=== PATIENT | male | born 1990 | race Caucasian/White ===

== ENCOUNTER 2019-09-03 01:19 | Emergency (ER) | payer SELFPAY ==
--- NOTE | 2019-09-03 07:05 | ER Document Report ---
ED Respiratory Problem - General Chief Complaint: Shortness Of Breath Stated Complaint: SHORTNESS OF BREATH/LIMBS NUMB Time Seen by Provider: 09/03/19 06:15 Primary Care Provider: ERIC LOVELL MD [Primary Care Provider] - Follow up as needed Notes: 28-year-old male reports worsening shortness of Breath, states it's been going on for about a year but tonight unable to lay flat. Reports intermittent "flare ups" of breathing problems. Pt reports he travels for [employer] all over the and recently traveled from [place] 3 days ago. States he has "flare ups" while driving sometimes and with activity. Reports being a current smoker. Pt denies chest pain, denies pain with deep breaths, denies N/V/D. Pt reports having mild weakness in upper and lower extremities at times. NAD noted at this time. Denies fever chills denies any coronavirus exposures. She does feel numb and tingling all over with some of these episodes. Including his hands and feet. Has been told he has had anxiety in the past. Does not have anything for it.. TRAVEL OUTSIDE OF THE [place] IN LAST 30 DAYS: No - Related Data Allergies/Adverse Reactions: No Known Allergies Allergy (Unverified 10/11/14 10:15) Past Medical History - Social History Smoking Status: Current Every Day Smoker Chew tobacco use (# tins/day): No Frequency of alcohol use: Occasional Drug Abuse: None Family History: Reviewed & Not Pertinent - Past Medical History Cardiac Medical History: Denies: Hx Coronary Artery Disease, Hx Heart Attack, Hx Hypertension Pulmonary Medical History: Denies: Hx Asthma, Hx Bronchitis, Hx COPD, Hx Pneumonia Neurological Medical History: Denies: Hx Cerebrovascular Accident, Hx Seizures Musculoskeletal Medical History: Denies Hx Arthritis Past Surgical History: Reports: Hx Orthopedic Surgery - Immunizations Hx Diphtheria, Pertussis, Tetanus Vaccination: Yes - unk - Review of Systems - Review of Systems Constitutional: denies: Chills, Fever EENT: No symptoms reported Cardiovascular: Palpitations, Heart racing, Dyspnea. denies: Chest pain Respiratory: denies: Cough, Hurts to breathe, Short of breath Neurological/Psychological: Anxiety, Tingling. denies: Seizure, Headaches -: Yes All other systems reviewed and negative Physical Exam - Vital signs Vitals: Temp 98.6 F 09/03/19 02:00 - Notes Notes: GENERAL_APPEARANCE: well_nourished, alert, cooperative, no_acute_distress, no_obvious_discomfort. VITALS: reviewed, see vital signs table. HEAD: no_swelling\\tenderness on the head. EYES: PERRL, EOMI, conjunctiva_clear. NOSE: no_nasal_discharge. MOUTH: (-)decreased moisture. THROAT: no_tonsilar_inflammation, no_airway_obstruction. no_lymphadenopathy NECK: supple, no_neck_tenderness, (-)thyromegaly. BACK: no_back_tenderness. CHEST_WALL: no_chest_tenderness. LUNGS: no_wheezing, no_rales, no_rhonchi, (-)accessory muscle use, good air exchange bilateral. HEART: normal_rate, normal_rhythm, normal_S1, normal_S2, (-)S3, (-)S4, no_murmur, no_rub. ABDOMEN: normal_BS, soft, no_abd_tenderness, (-)guarding, (-)rebound, no_organomegaly, no_abd_masses. EXTREMITIES: strength 5/5 in all_extremities, good pulses in all_extremities, no_swelling\\tenderness in the extremities, no_edema. SKIN: warm, dry, good_color, no_rash. MENTAL_STATUS: speech_clear, oriented_X_3, anxious _affect, responds_appropriately to questions. NEURO: Neg Motor or Sensory Deficits on exam, CN 2-12 intact, DTR 2+ symmetric x 4, No cerbellar signs PSYCH: Patient denies suicidal homicidal thoughts denies visual auditory hallucinations. States he does feel anxious from time to time. Course - Re-evaluation Re-evalutation: 09/03/19 07:03 28-year-old male who comes in complaining of 8 years worth of intermittent difficulty breathing and occasionally he will have numbness and tingling to his hands and feet. Patient stated he has struggled with anxiety before. He has no suicidal homicidal thoughts of his auditory hallucinations. Patient otherwise is doing well he is satting well here vitals are normal. The patient is comfor table appearing I spoke with him about this. Going on for about a year seems to be consistent with anxiety his lungs are good and clear he satting well suspicion for any kind of pulmonary abnormality is low appearing we will put him on some antianxiety medicine. Encouraged him about the importance of follow-up. If worse not improving in next 24 to 48 hours return to the ER here to be rechecked he verbalized understanding. - Vital Signs Vital signs: Temp Pulse Resp BP Pulse Ox 98.6 F 17 130/84 H 99 09/03/19 02:00 09/03/19 04:01 09/03/19 04:01 09/03/19 04:01 Discharge - Discharge Clinical Impression: Anxiety Condition: Good Disposition: HOME, SELF-CARE Instructions: Anxiety ([facility]) Prescriptions: Buspirone HCl [Buspar 10 mg Tablet] 10 mg PO BID #20 tab Referrals: ERIC LOVELL MD [Primary Care Provider] - Follow up as needed
[2019-09-03 07:29] VITALS: BP 115/79
== END 2019-09-03 07:29 | disposition home or self-care (01) ==
LOC: ER 01:19
DX: F41.9 Anxiety disorder, unspecified (principal); R06.02 Shortness of breath; R53.1 Weakness; R20.0 Anesthesia of skin; R20.2 Paresthesia of skin; R00.2 Palpitations; F17.200 Nicotine dependence, unspecified, uncomplicated
CPT/HCPCS: 99283